=== PATIENT | female | born 1995 | race Caucasian/White ===

== ENCOUNTER 2021-09-26 16:40 | Emergency (ER) | payer OTHER ==
[~2021-09-26] VITALS: Ht 160 cm; Wt 56.7 kg
[2021-09-26 17:50] VITALS: BP 123/85
== END 2021-09-26 17:50 | disposition home or self-care (01) ==
LOC: M.ERS 16:40
DX: L50.9 Urticaria, unspecified (principal); F41.9 Anxiety disorder, unspecified; F32.9 Major depressive disorder, single episode, unspecified